=== PATIENT | female | born 1960 | race Caucasian/White ===

== ENCOUNTER 2019-10-16 13:19 | Emergency (ER) | payer SELFPAY ==
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
[2019-10-16 13:30] VITALS: BP 169/89; PULSE 97; RESP 16; TEMP 37.2; O2SAT 94
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
[2019-10-16] MEDS: TETANUS,DIPHTHERIA,AC PERTUSSIS ADULT 0.5 ML (ADACEL) IM (13:52)
[2019-10-16 14:40] VITALS: BP 152/87
== END 2019-10-16 14:40 | disposition home or self-care (01) ==
PROVIDERS: Emergency Provider Emergency Medicine; PCP Family Medicine
DX: S40.012A Contusion of left shoulder, initial encounter (principal); T15.91XA Foreign body on external eye, part unspecified, right eye, initial encounter; S05.01XA Injury of conjunctiva and corneal abrasion without foreign body, right eye, initial encounter; V87.7XXA Person injured in collision between other specified motor vehicles (traffic), initial encounter
CPT/HCPCS: 73000; 90471; 90715; 99283; A9270

== ENCOUNTER 2021-02-23 09:41 | Emergency (ER) | payer OTHER, SELFPAY ==
--- NOTE | ~2021-02-23 | XR_ITS ---
EXAMINATION: XR sacrum coccyx min 2V DATE: 02/23/2021 11:08 INDICATION: Buttock pain post fall from truck TECHNIQUE: Frontal, angled frontal and lateral views of the sacrum and coccyx were obtained. COMPARISON: None. FINDINGS: Mild lower lumbar spondylosis with 2 mm anterolisthesis L3 on L4. Bone alignment is otherwise normal. No fracture with intact sacral arches. Mild osteoarthritis at the bilateral sacroiliac joints. IMPRESSION: 1. Mild degenerative skeletal changes in the lower lumbar spine and pelvis. No fracture or other acut e osseous abnormality. Reviewed, dictated and finalized at location B. [employer] IMPRESSION: 1. Mild degenerative skeletal changes in the lower lumbar spine and pelvis. No fracture or other acute osseous abnormality.
[2021-02-23 09:51] VITALS: BP 154/84; PULSE 66; RESP 16; TEMP 36.8; O2SAT 100
--- NOTE | 2021-02-23 10:57 | ED.BACK ---
HPI - Back Pain/Injury General Chief Complaint: Back Pain/Injury Stated Complaint: Tail Bone Injury Source: patient and RN notes reviewed Mode of arrival: ambulatory History of Present Illness HPI Narrative: This is a 60-year-old female that presented to urgent care with complaints of lower back pain due to injury. According to patient on she fell in between her truck and her horse and injured her tailbone area. Patient notes that he has been taking ibuprofen she also noted last night her pain was unbearable this is why she is here at our urgent care. The patient denies SOB, CP, palpitation, no neurovascular deficiency , positive for sensation ,extremity numbness, lightheadedness, dizziness, constipation, diarrhea, chills, or fever. Related Data Allergies Allergy/AdvReac Type Severity Reaction Status Date / Time No Known Allergies Allergy Verified 10/16/19 13:45 Review of Systems Review of Systems: A 14 organ system Review of Systems was performed and pertinent positives included in the HPI, otherwise remaining ROS is negative. [facility] Surgical History Surgical History H/O: hysterectomy History of cholecystectomy Social History Social History Smoking status: Never smoker Alcohol intake: never Substance use: never Exam Narrative: GENERAL: This is a well-nourished, well-developed patient, in no apparent distress. HEAD: normocephalic, atraumatic. EYES: PERRL. Sclera clear/white. Vision is grossly intact. EARS: External ears normal, auditory canals clear and without drainage, TMs normal without perforation. Hearing grossly intact. NOSE: External nose normal with no obvious nasal discharge, nares without redness, no rhinorrhea. THROAT: Mucous membranes moist, posterior pharynx clear. NECK: Neck supple, non-tender without lymphadenopathy, masses or thyromegaly. CARDIOVASCULAR: Regular rate and rhythm without murmurs, gallops, or rubs. RESPIRATORY: Clear to auscultation. Breath sounds equal bilaterally. No wheezes, rales, or rhonchi. GASTROINTESTINAL: Abdomen soft, non-tender, nondistended. Bowel sounds are active. No hepato-splenomegaly, or palpable masses. No guarding. SKIN: warm, intact with no suspicious lesions or rash, good texture and turgor. NEURO: awake, alert, and oriented to person, place and time. There were no obvious focal neurologic abnormalities. Steady gait EXTREMITIES: Normal range of motion. No edema. No calf tenderness. Negative Homans sign bilaterally. BACK: Tenderness to lower back with movement and weightbearing Course Course Emergency Course: X-ray unremarkable Level of Care: Express Care Visit Vital Signs Vital signs: Vital Signs Temperature 98.3 F 02/23/21 09:51 Pulse Rate 66 02/23/21 09:51 Respiratory Rate 16 02/23/21 09:51 Blood Pressure 154/84 H 02/23/21 09:51 Pulse Oximetry 100 02/23/21 09:51 Temperature 98.3 F 02/23/21 09:51 Pulse Rate 66 02/23/21 09:51 Respiratory Rate 16 02/23/21 09:51 Blood Pressure 154/84 H 02/23/21 09:51 Pulse Oximetry 100 02/23/21 09:51 MDM - Back Pain/Injury Differential Diagnosis Differential diagnosis: Likely lumbar radiculopathy, strain of lumbar region and other (Coccyx fracture) Discharge Plan Discharge Clinical Impression: Strain of lumbar region Qualifiers: Encounter type: initial encounter Qualified Code(s): S39.012A - Strain of muscle, fascia and tendon of lower back, initial encounter Patient Disposition: Home, Self-Care Condition: Stable Instructions: Antibiotic Form Additional Instructions: Ice to the area 15-20 minutes 4-6 times a day for two to three days Minimize activities that aggravate the condition Elevate above heart as much as possible to reduce swelling Crutches as directed if needed for walking household assistant; however be caution when going up and down the stairs.
== END 2021-02-23 11:28 | disposition home or self-care (01) ==
PROVIDERS: Emergency Provider Nurse Practitioner Family; PCP Family Medicine
DX: S39.012A Strain of muscle, fascia and tendon of lower back, initial encounter (principal); W19.XXXA Unspecified fall, initial encounter
CPT/HCPCS: 72220; 99213; G0463